=== PATIENT | female | born 1990 | race Caucasian/White ===

== ENCOUNTER 2018-07-08 14:10 | Observation (INO) | payer OTHER ==
[~2018-07-08] VITALS: Ht 160 cm; Wt 96.2 kg
[2018-07-08] MEDS ORDERED: PREN-134 PO (15:22)
== END 2018-07-08 17:50 | disposition home or self-care (01) ==
LOC: 4S 14:10
PROVIDERS: ADMIT Obstetrics & Gynecology; ATTEND Obstetrics & Gynecology
DX: O62.9 Abnormality of forces of labor, unspecified (principal); Z3A.39 39 weeks gestation of pregnancy
CPT/HCPCS: 59025; G0378

== ENCOUNTER 2018-07-09 10:50 | Inpatient (IN) | payer OTHER ==
[~2018-07-09] VITALS: Ht 132.1 cm; Wt 94.3 kg
[~2018-07-09 10:50] MED LIST: PREN-134 PO
[2018-07-09 11:14] VITALS: BP 124/92
[2018-07-09] MEDS ORDERED: OXYTOCIN 30 UNITS/LACT RINGERS 500 ML IV ONE (11:55)
[2018-07-09] MEDS ORDERED: RINGERS SOLUTION,LACTATED 1,000 ML IV PRN (11:55)
[2018-07-09] MEDS ORDERED: METOCLOPRAMIDE HCL 5 MG/ML 2 ML VIAL IVP PRN (12:00)
[2018-07-09] MEDS ORDERED: OXYGEN THERAPY IH SCH (12:00)
[2018-07-09] MEDS ORDERED: CITRIC ACID/SODIUM CITRATE 30 ML SOLUTION UDCUP PO PRN (12:00)
[2018-07-09] MEDS ORDERED: METHYLERGONOVINE MALEATE 0.2 MG/ML VIAL IM PRN (12:00)
[2018-07-09] MEDS ORDERED: FentaNYL CITRATE-PF 100 MCG/2 ML VIAL IVP PRN (12:00)
[2018-07-09] MEDS ORDERED: LIDOCAINE HCL/PF 1% 30 ML VIAL INJ PRN (12:00)
[2018-07-09 12:33] LABS: BASOPHILS % (AUTO) 0.8 % (0.0-2.0); EOSINOPHILS % (AUTO) 0.7 % (1.0-6.0); HEMATOCRIT 40.9 % (36-46); HEMOGLOBIN 13.6 g/dL (12.0-16.0); LYMPHOCYTES # (AUTO) 1.6 K/uL (1.0-4.8); LYMPHOCYTES % (AUTO) 15.6 % (22.0-44.0); MEAN CORPUSCULAR HEMOGLOBIN 29.8 pg (26.0-34.0); MEAN CORPUSCULAR HGB CONC 33.3 G/dL (31.0-37.0); MEAN CORPUSCULAR VOLUME 90 fL (80-100); MONOCYTES # (AUTO) 0.6 K/uL (0.1-1.0); MONOCYTES % (AUTO) 6.4 % (2.0-9.0); NEUTROPHILS # (AUTO) 7.6 K/uL (1.8-7.7); NEUTROPHILS % (AUTO) 76.5 % (40.0-70.0); RED BLOOD CELL COUNT(AUTO) 4.57 MIL/uL (4.00-5.20); RED CELL DISTRIBUTION WIDTH 14.1 % (11.5-14.5)
[2018-07-09 12:56] LABS: PLATELET COUNT (AUTO)-OB 80 K/uL (150-450)
[2018-07-09] MEDS: RINGERS SOLUTION,LACTATED 1,000 ML IV SCH ×2 (13:08→17:56)
[2018-07-09] MEDS ORDERED: LIDOCAINE HCL/PF 2% 5 ML VIAL ONE (13:11)
[2018-07-09] MEDS ORDERED: ROPIVACAINE HCL/PF 0.2% 100 ML ED ONE (13:11)
[2018-07-09] MEDS ORDERED: ROPIVACAINE HCL/PF 0.2% 100 ML ED PRN (13:29)
[2018-07-09] MEDS ORDERED: NALBUPHINE HCL 10 MG/ML VIAL IVP PRN (13:30)
[2018-07-09] MEDS ORDERED: ONDANSETRON HCL 4 MG/2 ML VIAL IVP PRN (13:30)
[2018-07-09] MEDS ORDERED: DiphenhydrAMINE HCL 50 MG/ML VIAL IVP PRN (13:30)
[2018-07-09] MEDS ORDERED: OXYTOCIN 30 UNITS/LACT RINGERS 500 ML IV PRN (13:59)
[2018-07-09] MEDS ORDERED: BENZOCAINE 20%/MENTHOL 56 GM SPRAY CANISTER TP PRN (21:00)
[2018-07-09] MEDS ORDERED: CeFAZolin 2 GM/DEXTROSE 50 ML IV ONE (21:00)
[2018-07-09] MEDS ORDERED: MAGNESIUM HYDROXIDE SUSPENSION 30 ML UDCUP PO SCH (21:00)
[2018-07-09] MEDS ORDERED: ACETAMINOPHEN/CODEINE 300-30 MG TABLET PO PRN (21:00)
[2018-07-09] MEDS ORDERED: GLYCERIN/WITCH HAZEL LEAF 40 PADS JAR TP PRN (21:00)
[2018-07-09] MEDS ORDERED: LANOLIN 7 GM OINTMENT TP PRN (21:00)
[2018-07-10] MEDS: IBUPROFEN 800 MG TABLET PO SCH ×4 (00:01→18:14)
[2018-07-10] MEDS: ACETAMINOPHEN/CODEINE 300-30 MG TABLET PO PRN ×2 (03:39→12:01)
[2018-07-10 07:35] LABS: BASOPHILS % (AUTO) 0.4 % (0.0-2.0); EOSINOPHILS % (AUTO) 0.4 % (1.0-6.0); HEMATOCRIT 34.3 % (36-46); HEMOGLOBIN 11.6 g/dL (12.0-16.0); LYMPHOCYTES # (AUTO) 1.9 K/uL (1.0-4.8); LYMPHOCYTES % (AUTO) 12.9 % (22.0-44.0); MEAN CORPUSCULAR HEMOGLOBIN 29.8 pg (26.0-34.0); MEAN CORPUSCULAR HGB CONC 33.7 G/dL (31.0-37.0); MEAN CORPUSCULAR VOLUME 88 fL (80-100); MONOCYTES # (AUTO) 0.9 K/uL (0.1-1.0); MONOCYTES % (AUTO) 6.3 % (2.0-9.0); NEUTROPHILS # (AUTO) 11.5 K/uL (1.8-7.7); RED BLOOD CELL COUNT(AUTO) 3.88 MIL/uL (4.00-5.20); RED CELL DISTRIBUTION WIDTH 14.2 % (11.5-14.5)
[2018-07-10 07:53] LABS: PLATELET COUNT (AUTO)-OB 74 K/uL (150-450); PLATELET MORPHOLOGY COMMENT GIANT PLTS PRESENT
[2018-07-10] MEDS ORDERED: BETHANECHOL CHLORIDE 25 MG TABLET PO ONE (09:30)
[2018-07-10] MEDS ORDERED: IBUP-2071 PO (19:02)
== END 2018-07-10 21:29 | disposition home or self-care (01) | DRG 775 ==
LOC: OBSVTOIN 10:50 → 4S 10:50
PROVIDERS: ADMIT Obstetrics & Gynecology; ATTEND Obstetrics & Gynecology
PROC: 10D07Z6 Extraction of Products of Conception, Vacuum, Via Natural or Artificial Opening (ICD-10-PCS; principal; 2018-07-09)
PROC: 0W8NXZZ Division of Female Perineum, External Approach (ICD-10-PCS; 2018-07-09)
PROC: 3E0R3BZ Introduction of Anesthetic Agent into Spinal Canal, Percutaneous Approach (ICD-10-PCS; 2018-07-09)
PROC: 00HU33Z Insertion of Infusion Device into Spinal Canal, Percutaneous Approach (ICD-10-PCS; 2018-07-09)
DX: O76 Abnormality in fetal heart rate and rhythm complicating labor and delivery (principal); O77.0 Labor and delivery complicated by meconium in amniotic fluid; Z3A.39 39 weeks gestation of pregnancy; Z37.0 Single live birth; O66.5 Attempted application of vacuum extractor and forceps
CPT/HCPCS: 85461; 86850; 86900; 86901; J2590; J2795; J3010; J3490; J7120